=== PATIENT | female | born 1950 | race Caucasian/White ===

== ENCOUNTER → 2017-05-04 | Outpatient (CLI) | payer MEDICARE, OTHER ==
[~2017-05-04] MED LIST: ASPI-1471 PO; ATOR10TA65 PO; CALC1TAB32 PO; CAP25 PO; CAPT50TA PO; CHOL10005 PO; CRAN1CAP14 PO; FISH1CAP15 PO; HYDR12.558 PO; IBU600 PO; LEVO150T78 PO; LEVOTHYROXINE PO; LOR5 PO; MULT1TAB64 PO; PNEU0.5D3 IM; VITA-175 PO; VITA-200 PO
--- NOTE | 2017-05-07 09:00 | RADIOLOGY IMAGING REPORT ---
FACILITY: [facility] PATIENT NAME: IVANNA BOWERS : [id number] MR: [id number] V: [id number] EXAM DATE: [id number] ORDERING PHYSICIAN: MONSE GUERRERO TECHNOLOGIST: Christie Kimball PROCEDURE:BILATERAL DIGITAL SCREENING MAMMOGRAM WITH CAD ASSISTED INTERPRETATION & 3D TOMOSYNTHESIS COMPARISON:Prior mammograms 06/14/15, 07/24/12. INDICATIONS:screening FINDINGS: There is prominent fat replacement throughout the breasts. Fibroglandular tissue has remained stable allowing for difference in mammographic technique & patient positioning. There is no evidence of malignant appearing mass, malignant appearing calcifications or other secondary sign of malignancy in either breast. DIAGNOSTIC CATEGORY 1--NEGATIVE. RECOMMENDATIONS: ROUTINE MAMMOGRAM AND CLINICAL EVALUATION. IMPRESSION: BIRADS 1: Negative No significant abnormality is seen Dictated by: Kalyani Altman M.D. on 05/04/2017 at 15:46 Transcribed by: MOE on 05/04/2017 at 16:08 Approved by: Kalyani Altman M.D. on 05/07/2017 at 8:59 [facility]
== END ==
LOC: MAMO 04:37
PROVIDERS: ATTEND Internal Medicine
DX: Z12.31 Encounter for screening mammogram for malignant neoplasm of breast (principal)
CPT/HCPCS: 77063; 77067

== ENCOUNTER → 2018-02-21 | Outpatient (CLI) | payer MEDICARE, OTHER ==
[~2018-02-21] MED LIST changes: +LEVO137T23 PO; +LISI20TA29 PO; +PNEI IJ
--- NOTE | 2018-02-21 13:50 | EKG ---
FACILITY: [facility] [place] PATIENT NAME: IVANNA BOWERS : [id number] MR: [id number] V: [id number] EXAM DATE: ORDERING PHYSICIAN: JUDE CANTOR TECHNOLOGIST: JIGNESH Costa Reason : PREOP Blood Pressure : / mmHG Vent. Rate : 062 BPM Atrial Rate : 062 BPM P-R Int : 150 ms QRS Dur : 088 ms QT Int : 402 ms P-R-T Axes : 069 020 039 degrees QTc Int : 408 ms Sinus rhythm Possible left atrial enlargement No acute appearing findings No previous ECGs available Confirmed by COREY VILLAR ([id number] on 02/21/2018 3:31:57 PM Referred By: Confirmed By:COREY VILLAR
== END ==
LOC: RESP 13:38
PROVIDERS: ATTEND Anesthesiology
DX: Z01.810 Encounter for preprocedural cardiovascular examination (principal); G56.01 Carpal tunnel syndrome, right upper limb
CPT/HCPCS: 93005